=== PATIENT | female | born 1955 | race Caucasian/White ===

== ENCOUNTER → 2016-06-27 | Outpatient (CLI) | payer BC | LOC: CT 15:00 → KOH-I 15:04 | DX: N30.91 Cystitis, unspecified with hematuria (principal) | CPT/HCPCS: 74176 ==

== ENCOUNTER → 2016-07-08 | Outpatient (CLI) | payer BC | LOC: MAMO 08:40 | DX: Z12.31 Encounter for screening mammogram for malignant neoplasm of breast (principal); R94.5 Abnormal results of liver function studies | CPT/HCPCS: 76705; G0202 ==

== ENCOUNTER → 2020-03-19 | Outpatient (CLI) | payer MEDICARE ==
[~2020-03-19] MED LIST: BENZONATATE100 MG PO; FLONASE 0.05% N16 GM; LEVOTHYROXINE50 MCG PO; LORATADINE-D 21 EACH PO; NAPROSYN500 MG PO; NORCO 5-325 TA1 EACH PO; NORCO 7.5-3251 EACH PO; NORVASC10 MG PO; SINGULAIR10 MG PO; TENORMIN 25 MG25 MG PO; ZOCOR10 MG PO; ZOFRAN4 MG PO
[2020-03-19 12:53] LABS: HEMOGLOBIN 13.2 gm/dl (12.3-15.3); RED BLOOD COUNT 4.34 M/UL (4.00-5.10); WHITE BLOOD COUNT 5.1 K/UL (4.5-11.0)
[2020-03-19 13:59] LABS: BUN/CREATININE RATIO 18 (0-10)
== END ==
LOC: LAB 11:15
PROVIDERS: Family Medicine
DX: M54.42 Lumbago with sciatica, left side (principal); E78.5 Hyperlipidemia, unspecified; I10 Essential (primary) hypertension; E03.9 Hypothyroidism, unspecified; E55.9 Vitamin D deficiency, unspecified; M47.816 Spondylosis without myelopathy or radiculopathy, lumbar region
CPT/HCPCS: 72100; 80053; 80061; 84439; 84443; 85027

== ENCOUNTER → 2020-04-07 | Outpatient (CLI) | payer MEDICARE, OTHER | LOC: EXRD 11:30 | DX: M81.0 Age-related osteoporosis without current pathological fracture (principal) | CPT/HCPCS: 77080 ==

== ENCOUNTER → 2020-05-12 | Outpatient (CLI) | payer MEDICARE, OTHER | LOC: HEART 5 09:28 | DX: I71.2 Thoracic aortic aneurysm, without rupture (principal); I35.1 Nonrheumatic aortic (valve) insufficiency | CPT/HCPCS: 93306 ==

== ENCOUNTER → 2020-07-17 | Outpatient (CLI) | payer MEDICARE, OTHER | LOC: EMI 09:46 | DX: M46.96 Unspecified inflammatory spondylopathy, lumbar region (principal); M54.31 Sciatica, right side; M54.16 Radiculopathy, lumbar region; M41.9 Scoliosis, unspecified | CPT/HCPCS: 72148 ==

== ENCOUNTER → 2020-10-22 | Outpatient (CLI) | payer MEDICARE, OTHER | LOC: CT 08:30 | DX: I71.2 Thoracic aortic aneurysm, without rupture (principal) | CPT/HCPCS: 36415; 71275; 82565; Q9967 ==

== ENCOUNTER → 2021-09-22 | Outpatient (CLI) | payer MEDICARE, OTHER | LOC: EXRD 14:43 | DX: M79.644 Pain in right finger(s) (principal); M79.641 Pain in right hand; M89.9 Disorder of bone, unspecified; M81.0 Age-related osteoporosis without current pathological fracture; M18.9 Osteoarthritis of first carpometacarpal joint, unspecified | CPT/HCPCS: 73130; 73140 ==